=== PATIENT | male | born 1985 | race African-American/Black ===

== ENCOUNTER 2021-10-11 13:21 | Emergency (ER) | payer OTHER, SELFPAY ==
--- NOTE | ~2021-10-11 | XR_ITS ---
EXAMINATION: XR heel LT min 2V DATE: 10/11/2021 13:41 INDICATION: Left heel pain. TECHNIQUE: 2 views of left calcaneus were obtained. COMPARISON: None. FINDINGS: Bone alignment is normal. No fracture. There is mild midfoot osteoarthritis. There is an en thesophyte at posterior aspect of calcaneal tuberosity. IMPRESSION: 1. No fracture. Reviewed, dictated and finalized at location A. 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 No fracture.
--- NOTE | ~2021-10-11 | XR_ITS ---
EXAMINATION: XR heel RT min 2V DATE: 10/11/2021 13:41 INDICATION: Right heel pain. TECHNIQUE: 2 views of right calcaneus were obtained. COMPARISON: None. FINDINGS: Bone alignment is normal. No fracture. There is chronic heterotopic ossification anterior t o the ankle joint on the lateral radiograph that is likely distal to lateral malleolus. There is mild midfoot osteoarthritis. There is an enthesophyte at posterior aspect of calcaneal tuberosity. IMPRESSION: 1. No fracture. Reviewed, dictated and finalized at location A. FINISHER IMPRESSION: 1. No fracture.
[2021-10-11 13:37] VITALS: BP 119/89; PULSE 86; RESP 16; O2SAT 100
--- NOTE | 2021-10-11 13:47 | ED.LOWEXIN ---
HPI - Extremity Injury (Lower) General Chief Complaint: Extremity Problem,Nontraumatic Stated Complaint: Heel pain in both feet. Time Seen by Provider: 10/11/21 13:30 Source: patient and RN notes reviewed History of Present Illness HPI Narrative: Patient is a 55-year-old male who presents the urgent care with complaints of bilateral heel pain. Patient's to proximately 4 to 5 days ago he was on vacation and did a running back flip on the concrete barefoot. Patient states that he has been taking Tylenol [id number] for pain. Patient states that it only hurts with weightbearing but is not tender to the touch. No other acute complaints. No acute distress noted. Patient aware of the plan of care. Some parts of this dictation were generated by voice recognition software and may contain typographical and/or grammatical inaccuracies. Review of Systems Review of Systems: CONSTITUTIONAL: Denies fever, chills, or sweats. EYES: Denies visual changes, redness, or discharge. ENT: Denies rhinorrhea, congestion, sore throat, or otalgia. CARDIOVASCULAR: Denies chest pain, palpitations, or edema. RESPIRATORY: Denies cough or dyspnea. GASTROINTESTINAL: Denies abdominal pain, nausea, vomiting, or diarrhea. GENITOURINARY: Denies dysuria or hematuria. SKIN: Denies rash or itching. MUSCULOSKELETAL: Reports bilateral heel pain NEUROLOGIC: Denies headache, numbness, or weakness. All other systems reviewed are negative, except as documented in HPI. PMFSH Comments At the time of my signature, I reviewed and agree with the nursing past medical, surgical, social, and family history. There is no relevant family history pertinent to the patient complaint. Exam Narrative: GENERAL: This is a well-nourished, well-developed patient, in no apparent distress. HEAD: normocephalic, atraumatic. EYES: PERRL. Sclera clear/white. Vision is grossly intact. EARS: External ears normal NOSE: External nose normal with no obvious nasal discharge, nares without redness, no rhinorrhea. THROAT: Mucous membranes moist NECK: Neck supple RESPIRATORY: Clear to auscultation. Breath sounds equal bilaterally. No wheezes, rales, or rhonchi. SKIN: warm, intact with no suspicious lesions or rash, good texture and turgor. NEURO: awake, alert, and oriented to person, place and time. There were no obvious focal neurologic abnormalities. EXTREMITIES: No obvious edema, ecchymosis or deformity noted to bilateral heels. Positive strong bilateral pedal pulses with capillary refill less than 2 seconds. Range of motion within normal limits to bilateral lower extremities. No tenderness on exam Course Course Level of Care: Express Care Visit Vital Signs Vital signs: Vital Signs Pulse Rate 86 10/11/21 13:37 Respiratory Rate 16 10/11/21 13:37 Blood Pressure 119/89 10/11/21 13:37 Pulse Oximetry 100 10/11/21 13:37 Pulse Rate 86 10/11/21 13:37 Respiratory Rate 16 10/11/21 13:37 Blood Pressure 119/89 10/11/21 13:37 Pulse Oximetry 100 10/11/21 13:37 Reviewed MDM - Extremity Injury (Lower) MDM Narrative Medical decision making narrative: Reviewed x-ray results with the patient. He is aware x-rays are both negative for fracture or deformity. Advised the patient to keep the feet elevated with ice or moist heat for comfort. Use Tylenol/ibuprofen as needed for pain. Wear more supportive shoe. Follow-up with your PCP within 2 to 5 days or for worsening symptoms or failure to improve. Differential Diagnosis Differential diagnosis: Likely ankle sprain and strain, acute internal derangement of knee, fracture of femur, fracture of hip and ankle fracture Imaging Data Radiologist's impression: [facility] Aguirre[address] [place] [address] [phone] XRay ReportSigned Patient: Víctor ChaparroDOB: 1985MR#: [id number]/Sex: 35 / MAcct:[id number]: EXPALEX ADM Date: 10/11/21Attending Dr: Ordering Physician: Maryanne Perez APN Date of
== END 2021-10-11 13:56 | disposition home or self-care (01) ==
PROVIDERS: Emergency Provider Nurse Practitioner Family
DX: S90.30XA Contusion of unspecified foot, initial encounter (principal); X58.XXXA Exposure to other specified factors, initial encounter
CPT/HCPCS: 73650; 99214; G0463